=== PATIENT | female | born 1955 | race American Indian/Alaskan Native ===

== ENCOUNTER 2019-06-18 09:06 | Outpatient (CLI) | payer MEDICARE ==
--- NOTE | 2019-06-18 09:54 | XRay Report ---
CHEST 2 VIEWS INDICATION / CLINICAL INFORMATION: HYPERTENSION; DIABETES; Z01.818 Encounter for other preprocedural ex. COMPARISON: 07/25/2016. FINDINGS: SUPPORT DEVICES: None. HEART / MEDIASTINUM: The heart size and pulmonary vasculature are normal. LUNGS / PLEURA: There is a small calcified granuloma in the left upper lobe. The lungs are otherwise clear. No pneumothorax. ADDITIONAL FINDINGS: There are [id number] degenerative changes involving both shoulders and the lower cervical spine. IMPRESSION: No acute findings. Signer Name: Dillon Headley MD Signed: 06/18/2019 9:50 AM Workstation Name: [id number]
== END 2019-06-18 09:07 | disposition home or self-care (01) ==
LOC: XRAY 09:06
PROVIDERS: ATTEND Internal Medicine
DX: M47.812 Spondylosis without myelopathy or radiculopathy, cervical region (principal); M19.012 Primary osteoarthritis, left shoulder; M19.011 Primary osteoarthritis, right shoulder; I10 Essential (primary) hypertension; E11.9 Type 2 diabetes mellitus without complications; Z01.818 Encounter for other preprocedural examination
CPT/HCPCS: 71046